=== PATIENT | male | born 1980 | race Caucasian/White ===

== ENCOUNTER 2020-11-18 22:15 | Emergency (ER) | payer SELFPAY | END 2020-11-18 23:09 | disposition home or self-care (01) | LOC: NAV ERS 22:15 | DX: S93.601A Unspecified sprain of right foot, initial encounter (principal); F17.220 Nicotine dependence, chewing tobacco, uncomplicated; F17.290 Nicotine dependence, other tobacco product, uncomplicated; W18.30XA Fall on same level, unspecified, initial encounter ==

== ENCOUNTER 2021-07-15 08:45 | Emergency (ER) | payer OTHER, SELFPAY | END 2021-07-15 10:30 | disposition home or self-care (01) | LOC: NAV ERS 08:45 | DX: S50.12XA Contusion of left forearm, initial encounter (principal); W10.9XXA Fall (on) (from) unspecified stairs and steps, initial encounter ==

== ENCOUNTER 2021-10-06 21:51 | Emergency (ER) | payer BC, SELFPAY ==
[2021-10-06] MEDS ORDERED: Ibuprofen 800 MG TAB ONE (22:28)
== END 2021-10-06 22:35 | disposition home or self-care (01) ==
LOC: NAV ERS 21:51
DX: M54.2 Cervicalgia (principal)

== ENCOUNTER 2022-12-21 22:16 | Emergency (ER) | payer BC, SELFPAY | END 2022-12-21 23:54 | disposition home or self-care (01) | LOC: NAV CT 22:16 | DX: S50.11XA Contusion of right forearm, initial encounter (principal); F17.290 Nicotine dependence, other tobacco product, uncomplicated; W22.8XXA Striking against or struck by other objects, initial encounter ==

== ENCOUNTER 2023-06-26 11:51 | Emergency (ER) | payer OTHER, SELFPAY | END 2023-06-26 12:38 | disposition home or self-care (01) | LOC: NAV ERS 11:51 | DX: J20.8 Acute bronchitis due to other specified organisms (principal); F17.290 Nicotine dependence, other tobacco product, uncomplicated | CPT/HCPCS: 71046 ==